=== PATIENT | male | born 1965 | race Caucasian/White ===

== ENCOUNTER 2017-11-30 11:15 | Emergency (ER) | payer OTHER ==
[~2017-11-30] VITALS: Ht 188 cm; Wt 86.2 kg
[~2017-11-30 11:15] MED LIST: HUMALOG100 UNIT/1 SUBQ; LEVEMIR SUBQ
[2017-11-30] MEDS ORDERED: B/P MED (11:23)
[2017-11-30 11:37] LABS: ABSOLUTE BASOPHILS 0.1 thou/uL (0.0-0.2); ABSOLUTE EOSINOPHILS 0.1 thou/uL (0.0-0.7); ABSOLUTE LYMPHOCYTES 1.7 thou/uL (0.8-5.3); ABSOLUTE MONOCYTES 0.4 thou/uL (0.0-1.2); BASOPHILS 0.9 %; EOSINOPHILS 1.7 %; HEMATOCRIT 41.1 % (42.0-52.0); HEMOGLOBIN 14.1 gm/dL (14.0-18.0); LYMPHOCYTES 27.8 %; MCHC 34.2 g/dL (28.0-37.0); MCV 90.6 fL (80.0-100.0); MPV 11.1 fl. (7.2-11.1); NUCLEATED RBCS 0 /100WBC; PLATELET COUNT* 188 thou/uL (150-400); POLYS 63.6 %; RBC 4.54 mil/uL (4.50-6.00); RDW-CV 12.5 % (10.5-14.5); WBC 6.3 thou/uL (4.0-11.0)
[2017-11-30 11:47] LABS: ANION GAP 4 mmol/L (7-16); BUN 23 mg/dL (7-18); CALCIUM 9.2 mg/dL (8.5-10.1); CHLORIDE 100 mmol/L (98-107); CO2 32 mmol/L (21-32); CREATININE 0.9 mg/dL (0.6-1.3); GLUCOSE 365 mg/dL (70-99); POTASSIUM 3.9 mmol/L (3.5-5.1); SODIUM 136 mmol/L (136-145)
[2017-11-30 12:08] LABS: APTT 23.1 Seconds (25.0-31.3); INR 1.1; PROTIME 10.4 Seconds (9.20-11.50)
[2017-11-30 12:16] LABS: ALBUMIN 3.8 g/dL (3.4-5.0); ALKALINE PHOSPHATASE 72 U/L (46-116); LIPASE 107 U/L (73-393); MAGNESIUM 2.3 mg/dL (1.8-2.4); NT-PRO BRAIN NAT PEPTIDE 15 pg/mL (<300); SGOT 7 U/L (15-37); SGPT 14 U/L (30-65); TOTAL BILIRUBIN 0.6 mg/dL (<0.1-1.0); TOTAL PROTEIN 6.7 g/dL (6.4-8.2); TROPONIN-I LEVEL <0.06 ng/mL (<0.06)
[2017-11-30 12:31] VITALS: BP 135/82
[2017-11-30 12:40] LABS: CK-MB MASS 1.1 ng/mL (<0.5-3.6)
--- NOTE | 2017-11-30 16:42 | EKG ---
[place] [address] ELECTROCARDIOGRAM REPORT Name: MAHENDRA AMADOR Room: [facility]#: [id number] Admission: 11/30/17 Attend Phys: Discharge: 11/30/17 Date of : 69 Report #: [id number] THIS REPORT FOR: //name// [facility] ED Test Date: 2017-11-30 Test Time: 11:20:42 Pat Name: MAHENDRA AMADOR Department: Room: Gender: M [employer]: EFRAIN : 1965 Requested By: Nilesh Hickman Order Number: [id number] MD: Pipo Garcia Measurements Intervals Hawi Rate: 93 P: 59 NM: 174 QRS: -19 QRSD: 89 T: 51 QT: 352 QTc: 438 Interpretive Statements Sinus rhythm Borderline left axis deviation Abnormal R-wave progression, early transition Baseline wander in lead(s) V4 Compared to ECG 08/13/2017 10:23:07 No significant changes Electronically Signed On 11-30-2017 16:42:21 CASINO PORTER by Pipo Garcia [email or web address] <ELECTRONICALLY SIGNED> By: Pipo Garcia MD, [facility] 11/30/17 1642 1120 1120 Pipo Garcia MD, [facility] /EPI
== END 2017-11-30 12:32 | disposition home or self-care (01) ==
LOC: M.ERS 11:15
PROVIDERS: Family Medicine
DX: R07.89 Other chest pain (principal); I10 Essential (primary) hypertension; E11.9 Type 2 diabetes mellitus without complications; F32.9 Major depressive disorder, single episode, unspecified; Z98.890 Other specified postprocedural states

== ENCOUNTER 2019-02-16 22:20 | Inpatient (IN) | payer OTHER ==
[~2019-02-16] VITALS: Ht 188 cm; Wt 92.1 kg
--- NOTE | ~2019-02-16 | CON ---
[address] [address] CONSULTATION Name: MAHENDRA AMADOR Room: [address] IN M.R.#: [id number] Admission: 02/16/19 Attend Phys: Giacomo Colby MD Discharge: Date of : 69 Report #: [id number] THIS REPORT FOR: //name// CC: ARLENE physician/PCP Giacomo Colby DATE OF SERVICE: 02/24/2019 post resection, left distal third, fourth and fifth rays with primary closure. Surgical cultures growing Staphylococcus species, preoperative cultures grew methicillin sensitive Staph aureus and Enterococcus faecalis. He is on parenteral Unasyn with good tolerance. He has been afebrile with normal vitals. His pain is low grade and controlled with ibuprofen. He has remained nonweightbearing to the extremity. PHYSICAL EXAMINATION: The incisions are well coapted with low grade inflammation and no dehiscence, drainage or active bleeding. There is no underlying fluctuance or crepitation. Lianne-incisional capillary refill is immediate with no pallor, cyanosis or signs of vascular embarrassment. No popliteal adenopathy, Homans' or Greene sign to either extremity. Moderate pain with palpation to the surgical site. He can flex and extend the left ankle with full strength. IMPRESSION: Osteomyelitis, left foot with diabetes mellitus, status post ray resections. PLAN: Remain nonweightbearing, elevate extremity. The incision was cleansed and redressed with 4 x 4s, ABDs, Kerlix and Anthony wrap. By: [id number] Vo DPM /nt
--- NOTE | ~2019-02-16 | OP ---
[address] [address] OPERATIVE REPORT Name: MAHENDRA AMADOR Room: [address] IN ..#: [id number] Admission: 02/16/19 Attend Phys: Giacomo Colby MD Discharge: Date of : 69 Report #: [id number] THIS REPORT FOR: //name// CC: ARLENE physician/PCP Giacomo Colby DATE OF SERVICE: 02/21/2019 SURGEON: Rowdy Vo DPM PREOPERATIVE DIAGNOSIS: Osteomyelitis, left distal foot with metatarsal involvement. POSTOPERATIVE DIAGNOSIS: Osteomyelitis, left distal foot with metatarsal involvement. PROCEDURE: 1. Ray resection of the left third, fourth and fifth metatarsals with primary closure. 2. Pedicle skin flap, left foot. 3. Incision and drainage, left foot. ANESTHESIA: General LMA. INJECTABLES: 30 mL of a 1:1 mixture of 0.5% Marcaine plain and 1% lidocaine plain. ESTIMATED BLOOD LOSS: Minimal. SUTURES: 2-0 nylon, 3-0 nylon. SPECIMENS: Left distal third, fourth and fifth metatarsals with the third and fifth digits. CULTURES: Bone, left fourth metatarsal, aerobic and anaerobic; soft tissue, left foot, aerobic and anaerobic. HEMOSTASIS: Left ankle pneumatic tourniquet at 275 mmHg. DESCRIPTION OF PROCEDURE: The patient was brought to the OR and placed on the table supine with induction of general LMA anesthesia. A well-padded left ankle pneumatic tourniquet was placed. A local anesthetic block was given to the foot and extremity was prepped and draped aseptically. After exsanguination, the tourniquet was inflated and a #10 blade was used to create a circumferential incision around the distal third, fourth and fifth metatarsophalangeal joints. The skin flap was retracted laterally and the [place] [address] OPERATIVE REPORT Name: MAHENDRA AMADOR Room: [address] IN [facility]#: [id number] Admission: 02/16/19 Attend Phys: Giacomo Colby MD Discharge: Date of : 69 Report #: [id number] metatarsal was removed and a portion was sent for bone culture and the remaining bone for pathology. The adjacent third and fifth toes were disarticulated and sent for specimen as well. The third and fifth metatarsals were transected at the midshaft region where the bone felt hard to the bone saw. They were sent for surgical pathology. The wound was debrided of infected and necrotic tissue and cauterized and flushed with sterile saline with 50,000 units of bacitracin. Then, a skin flap was utilized from plantar lateral and mobilized dorsal medially and sutured with 2-0 and 3-0 nylon in simple interrupted fashion. The skin flap was remodeled with a blade to facilitate closure. The tourniquet was deflated and normal vascular return was present. A small area between the sutures was kept open for drain placement, which consisted of a wick of Aquacel Ag. The entire surgical wound was closed except for the small drain site. The foot was cleansed and dried and dressed with Aquacel Ag, fluffs, ABDs, Kerlix, and Anthony bandage. The patient left the OR with no bleeding or complication. By: [id number] Vo DPM /rodrigo
--- NOTE | ~2019-02-16 | CON ---
[address] [address] CONSULTATION Name: MAHENDRA AMADOR Room: [address] IN M.R.#: [id number] Admission: 02/16/19 Attend Phys: Giacomo Colby MD Discharge: Date of : 69 Report #: [id number] THIS REPORT FOR: //name// CC: ARLENE physician/PCP Giacomo Colby DATE OF SERVICE: 02/22/2019 CHIEF COMPLAINT: Status post resection of the left distal third, fourth and fifth rays with primary closure. He has been afebrile with stable vital signs. He is on parenteral Unasyn with good tolerance. Initial surgical cultures grew Staph aureus and Enterococcus faecalis. Cultures from yesterday's surgery are pending. LABORATORY DATA: WBC 9.8, RBC 3.92, hemoglobin 11.5, hematocrit 34.8, platelets 341, BUN 11, creatinine 1.0. Glucose 217. PHYSICAL EXAMINATION: Left foot incision is well coapted with minimal inflammation and no elias erythema or cellulitis. There is no active bleeding, no underlying fluctuance or crepitation. No signs of acute vascular embarrassment. He has palpable left dorsalis pedis and posterior tibial pulses. IMPRESSION: Status post ray amputations, left foot with osteomyelitis. PLAN: Incision was cleansed and dried. It was redressed with 4 x 4s, ABDs, Kerlix, and Anthony bandage. The patient to remain strictly nonweightbearing to the extremity. By: [id number] Vo DPM /rodrigo
[~2019-02-16 22:20] MED LIST changes: +B/P MED
[2019-02-16 22:22] VITALS: BP 132/91
[2019-02-16 23:07] LABS: HEMATOCRIT 39.3 % (42.0-52.0); HEMOGLOBIN 13.3 gm/dL (14.0-18.0); MCH 30.2 pg (26.0-34.0); MCHC 33.8 g/dL (28.0-37.0); MCV 89.2 fL (80.0-100.0); MPV 10.7 fl. (7.2-11.1); NUCLEATED RBCS 0 /100WBC; PLATELET COUNT* 225 thou/uL (150-400); RBC 4.41 mil/uL (4.50-6.00); RDW-CV 12.6 % (10.5-14.5); WBC 11.5 thou/uL (4.0-11.0)
[2019-02-16 23:20] LABS: APTT 27.7 Seconds (25.0-31.3); INR 1.1; PROTIME 11.6 Seconds (9.20-11.50)
[2019-02-16 23:24] LABS: ANION GAP 14 mmol/L (7-16); BUN 21 mg/dL (7-18); CALCIUM 9.1 mg/dL (8.5-10.1); CHLORIDE 96 mmol/L (98-107); CO2 24 mmol/L (21-32); CREATININE 1.1 mg/dL (0.6-1.3); GLUCOSE 386 mg/dL (70-99); POTASSIUM 4.5 mmol/L (3.5-5.1); SODIUM 134 mmol/L (136-145); TROPONIN-I LEVEL <0.06 ng/mL (<0.06)
[2019-02-16 23:26] LABS: ALBUMIN 2.9 g/dL (3.4-5.0); ALKALINE PHOSPHATASE 88 U/L (46-116); LIPASE 51 U/L (73-393); MAGNESIUM 2.1 mg/dL (1.8-2.4); NT-PRO BRAIN NAT PEPTIDE 136 pg/mL (<300); SGOT 14 U/L (15-37); SGPT 9 U/L (30-65); TOTAL BILIRUBIN 0.9 mg/dL (<0.1-1.0); TOTAL PROTEIN 7.4 g/dL (6.4-8.2)
[2019-02-16 23:38] LABS: ABSOLUTE LYMPHOCYTES 1.4 thou/uL (0.8-5.3); ABSOLUTE MONOCYTES 0.8 thou/uL (0.0-1.2); ABSOLUTE NEUTROPHILS 9.3 thou/uL (1.6-8.1); ANISOCYTOSIS Occasional; PLATELET ESTIMATE ADEQUATE; TOXIC GRANULATION 1+
--- NOTE | 2019-02-17 | NUR ---
PT IV IS POSITIONAL. PT IV RE ADJUSTED, NEW DRESSING PLACED. IV TAKING BOLUS FLUID AT THIS TIME
[2019-02-17 00:07] VITALS: BP 100/78
--- NOTE | 2019-02-17 06:51 | NUR ---
PT ARRIVED FROM ER AT AROUND 0150. ASSESSMENT COMPLETED CHARTED. ABLE TO MAKE NEEDS KNOWN. C/O FOOT PAIN, GAVE PRN TYLENOL AND IBUPROFEN. ON BEDREST AND USES URINAL. PT HASNT HAD MONEY TO PAY FOR INSULIN AND HIS FOOT HAS AN OPEN SORE. PT SLEPT MOST OF THE SHIFT HERE. WILL CONTINUE TO MONITOR.
[2019-02-17 09:00] VITALS: BP 102/70
[2019-02-17 10:06] LABS: CALCIUM 8.2 mg/dL (8.5-10.1); CREATININE 1.1 mg/dL (0.6-1.3); POTASSIUM 3.9 mmol/L (3.5-5.1)
--- NOTE | 2019-02-17 11:03 | NUR ---
Pt is A&O. Pt resides and works at the [employer]. Active and independent, Pt can drive, but does not own a car. No DME. No hx of HH or SNF. Pt stated that his family use to have [place], but they "lost" it in 2018, Pt is unsure as to why. Pt is a diabetic, should be on insulin, but currently is not. CM discussed insulin at [facility] and provided Pt with the [facility] and [employer] info. Pt stated that he could afford the R and N insulin at [facility], if that is what is prescribed. Pt will call and schedule an appointment. Following.
[2019-02-17 12:00] VITALS: BP 103/77
--- NOTE | 2019-02-17 12:40 | EKG ---
[place] [address] ELECTROCARDIOGRAM REPORT Name: MAHENDRA AMADOR Room: [address] ADM IN .R.#: [id number] Admission: 02/16/19 Attend Phys: Giacomo Colby MD Discharge: Date of : 69 Report #: [id number] THIS REPORT FOR: //name// [facility] ED Test Date: 2019-02-17 Test Time: 00:00:37 Pat Name: MAHENDRA AMADOR Department: Room: [facility] Gender: M [employer]: : 1965 Requested By: Arnulfo Jones Order Number: [id number] MD: Cyrus Ramirez Measurements Intervals Randolph Rate: 105 P: 65 MN: 167 QRS: -23 QRSD: 77 T: 64 QT: 337 QTc: 446 Interpretive Statements Sinus tachycardia Probable left atrial enlargement Borderline left axis deviation Borderline low voltage, extremity leads ST elev, probable normal early repol pattern Compared to ECG 11/30/2017 11:20:42 Sinus rhythm no longer present Electronically Signed On 02-17-2019 12:40:20 CDT by Cyrus Ramirez [email or web address] <ELECTRONICALLY SIGNED> By: Cyrus Ramirez MD, FAC 02/17/19 1240 0000 0000 Cyrus Ramirez MD, [facility] /EPI
[2019-02-17 15:07] VITALS: BP 103/77
--- NOTE | 2019-02-17 15:34 | NUR ---
WOUND CARE NOTE: CONSULT RECEIVED FOR LT FOOT WOUND/CELLULITIS. PATIENT PRESENTS WITH A DIABETIC FOOT ULCER TO THE PLANTAR SURFACE OF HIS LEFT FOOT AT THE 4TH METATARSAL HEAD. PATIENT UNSURE OF HOW LONG HE HAS HAD THE WOUND. WOUND MEASURES 0.5X0.9X1.4. PROBES TO JOINT. FOUL ODOR NOTED. WOUND BED IS MOIST WITH PURULENT DRAINAGE. SACHI-WOUND IS EDEMATOUS, INFLAMMED. DRIED DRAINAGE NOTED TO SACHI-WOUND. ENTIRE LEFT FOREFOOT WITH 2-3+ EDEMA MANAGER ENDOSCOPY IN TO ASSESS WOUND DURING ASSESSMENT, PLANS FOR SURGERY THIS EVENING. CULTURES OBTAINED. PHOTOGRAPH OBTAINED. CLEANSED WOUND WITH WOUND CLEANSER, WRAPPED WITH KERLIX. RECOMMEND TIGHT BLOOD GLUCOSE CONTROL ENCOURAGE GOOD NUTRTION/HYDRATION ONCE ABLE
[2019-02-17 16:00] VITALS: BP 108/72
--- NOTE | 2019-02-17 19:46 | NUR ---
ASSUMED PT CARE AT 0700 PT IS ALERT AND ORIENTED X 4 PT DENIES PAIN PT LEFT FOOT RED HAS EDEMA AND ULCER ON BOTTOM LEFT FOOT OPEN AND BLEEDING CLEANED AND COVERED WITH MEPILEX PYSICIAN CONSULTED PODIATRY WHO ORDERED PT NPO WHICH THIS NURSE PLACED PT NPO AROUND 1200 FOR SURGERY, PT WENT TO PACU SINCE PT WAS NOT NPO FOR 8 HOURS SURGERY CAN NOT BE DONE TODAY PT IS NPO AT MIDNIGHT FOR PROCEDURE TOMORROW, PT IS UP WITH HEEL TOUCH WEIGHT BARRIN AND WALKER PT IS SBA PT WILL CALL OUT APPROPRIATELY, PT IS SR ON THE MONITOR, WILL CONTINUE TO MONITOR
[2019-02-17 20:00] VITALS: BP 106/64
[2019-02-18] VITALS: BP 97/69
[2019-02-18 04:00] VITALS: BP 99/68
[2019-02-18 05:00] LABS: HEMATOCRIT 32.2 % (42.0-52.0); MCH 29.7 pg (26.0-34.0); MCHC 33.1 g/dL (28.0-37.0); MCV 89.8 fL (80.0-100.0); MPV 10.9 fl. (7.2-11.1); RBC 3.59 mil/uL (4.50-6.00); RDW-CV 12.8 % (10.5-14.5)
[2019-02-18 05:08] LABS: CALCIUM 7.9 mg/dL (8.5-10.1); POTASSIUM 3.9 mmol/L (3.5-5.1)
[2019-02-18 05:39] LABS: HEMOGLOBIN 10.7 gm/dL (14.0-18.0)
--- NOTE | 2019-02-18 05:42 | NUR ---
ASSUMED CARE OF PT AFTER REPORT AT 1930. PT A&OX4. VSS. PHYSICAL ASSESSMENT COMPLETED AND CHARTED. PT ON RA WITH 92% O2 SAT. PT TRACING SR ON TELE. PT COMPLAINED OF LEFT FOOT PAIN- PAIN MEDS GIVEN PER JAN. INSTRUCTED PT ON NPO POST MIDNIGHT FOR SURGERY TODAY. COMMUNICATES UNDERSTANDING. MRSA NASAL SWAB SENT LAB. CALL LIGHT WITHIN REACH.
[2019-02-18 06:05] LABS: GLYCOHEMOGLOBIN (HGB A1C) 14.6 % (4.8-5.6)
[2019-02-18 08:00] VITALS: BP 93/66
--- NOTE | 2019-02-18 09:45 | NUR ---
ASSUMED CARE OF PATIENT THIS AM AT 0730. PATIENT IS ALERT AND ORIENTED X 4. HE DENIES NEED FOR PAIN MEDICATION THIS AM. TELE SHOWS NSR. PATIENT TAKEN TO PACU FOR ORDERED PROCEDURE PER W/C
[2019-02-18 12:03] VITALS: BP 104/77
[2019-02-18 16:58] VITALS: BP 115/77
[2019-02-18 20:00] VITALS: BP 101/70
[2019-02-19] VITALS: BP 106/75
[2019-02-19 04:00] VITALS: BP 108/74
[2019-02-19 04:39] LABS: HEMATOCRIT 30.9 % (42.0-52.0); HEMOGLOBIN 10.4 gm/dL (14.0-18.0); MCHC 33.8 g/dL (28.0-37.0); MCV 88.7 fL (80.0-100.0); MPV 11.1 fl. (7.2-11.1); RBC 3.49 mil/uL (4.50-6.00); RDW-CV 12.6 % (10.5-14.5); WBC 6.4 thou/uL (4.0-11.0)
[2019-02-19 04:47] LABS: CALCIUM 7.9 mg/dL (8.5-10.1); POTASSIUM 4.1 mmol/L (3.5-5.1)
[2019-02-19 05:34] LABS: URINE BILIRUBIN NEGATIVE (Negative); URINE BLOOD NEGATIVE (Negative); URINE CLARITY CLEAR; URINE COLOR YELLOW; URINE GLUCOSE-RANDOM 1+ (Negative); URINE KETONES NEGATIVE (Negative); URINE LEUKOCYTES-REFLEX NEGATIVE (Negative); URINE NITRITE-REFLEX NEGATIVE (Negative); URINE PROTEIN NEGATIVE (Negative); URINE SPECIFIC GRAVITY 1.015 (1.005-1.030)
--- NOTE | 2019-02-19 05:37 | NUR ---
ASSUMED CARE OF PT AFTER REPORT AT 1930. PT A&OX4. VSS. PHSYICAL ASSESSMENT COMPLETED AND CHARTED. PT ON RA WITH 93% O2 SAT. PT TRACING SR ON TELE. PT UPADLIB TO RESTROOM. PT COMPLAINED OF LEFT FOOT PAIN- PAIN MEDS GIVEN PER JAN. URINE SPECIMEN SENT TO LAB. CALL LIGHT WITHIN REACH.
[2019-02-19 08:00] VITALS: BP 108/80
--- NOTE | 2019-02-19 11:57 | NUR ---
ASSUMED CARE AGAIN THIS AM AT 073. PATIENT REMAINS ALERT AND ORIENTED. PATIENT STATED PAIN HAS BEEN CONTROLLED WITH PO IBUPROFEN. HE CONTINUES ON SCHEDULED IV ANTIBIOTICS. FSBS MONITORED. TELE SHOWS NSR. PATIENT IS UP TO THE BATHROOM INDEPENDENTLY. DR IN TO ROUND AND TRANSFER ORDERS WRITTEN. WILL DISCONTINUE TELE TODAY.
[2019-02-19 16:04] VITALS: BP 121/82
[2019-02-19 20:00] VITALS: BP 150/92
[2019-02-20 04:00] VITALS: BP 114/81
--- NOTE | 2019-02-20 05:46 | NUR ---
ASSUMED CARE OF PT AFTER REPORT AT 1930. PT A&OX4. VSS. PHYSICAL ASSESSMENT COMPLETED AND CHARTED. PT ON RA WITH 94% O2 SAT. PT ON MEDSURG STATUS. PT UPADLIB TO RESTROOM. PT COMPLAINED OF LEFT FOOT PAIN-PAIN MEDS GIVEN PER JAN. PT RESTED WELL ON BED. HOURLY ROUNDING OBSERVED. CALL LIGHT WITHIN REACH.
[2019-02-20 06:05] LABS: CALCIUM 8.4 mg/dL (8.5-10.1); CREATININE 1.1 mg/dL (0.6-1.3); MAGNESIUM 2.1 mg/dL (1.8-2.4); POTASSIUM 4.8 mmol/L (3.5-5.1)
[2019-02-20 08:00] VITALS: BP 114/79
--- NOTE | 2019-02-20 11:28 | NUR ---
ASSUMED PT CARE AT 0700 PT IS ALERT AND ORIENTED X 4 PT C/O PAIN GAVE PT PAIN MEDS WHICH PT STATES HELPS, PT IS MED SURG STATUS, PT IS UP AD ALDA PT IS NOT A FALL RISK, WILL CONTINUE TO MONITOR
[2019-02-20 12:15] VITALS: BP 126/76
[2019-02-20 14:16] VITALS: BP 118/80
[2019-02-20 20:00] VITALS: BP 148/90
--- NOTE | 2019-02-21 05:22 | NUR ---
PT TRANSFERRED FROM TELEMETRY VIA BED. PT AAOX4 RESP REG AND UNALBORED SKIN W/D NO ACUTE DISTRESS NOTED. PT IS AWARE THAT HE IS NPO AFTER MIDNIGHT FOR SURGERY IN AM. PT ORIENTED TO ROOM, ALL SYSTEMA ND BED CONTROLS. PT VERBALOZED GOOD UNDERSTANDING. VSS AND NO ACUTE CAHNGES DURIGN SHIFT. DRESSING TO RIGHT FOOT CLEAN DRY AND INTACT. WILL CONTINUE TO MONITOR
--- NOTE | 2019-02-21 07:50 | CON ---
[facility] [address] [place] [address] CONSULTATION Name: MAHENDRA AMADOR Room: [address] IN M.R.#: [id number] Admission: 02/16/19 Attend Phys: Giacomo Colby MD Discharge: Date of : 69 Report #: [id number] THIS REPORT FOR: //name// CC: ARLENE physician/PCP Giacomo Colby DATE OF SERVICE: 02/20/2019 INFECTIOUS DISEASE CONSULTATION ATTENDING PHYSICIAN: Isac Stoner M.D. REASON FOR EVALUATION: Deep-seated infection involving the left foot. He is post fourth digit amputation as well as the distal aspect of the fourth metatarsal, including the joint, with what appears to be polymicrobial growth including staph and strep. HISTORY OF PRESENT ILLNESS: Chart reviewed, the patient examined. This is a 53-year-old with known history of diabetes mellitus, who apparently has not been well controlled in part due to inability to acquire insulin and loss of insurance, noted hemoglobin A1c of greater than 14. He has had ongoing issues with peripheral neuropathy and also feeling in his foot. He believes he cut his foot, perhaps stepping on something. Over the course of the last 1-2 weeks, he has felt generalized discomfort and malaise. I think, he had the flu. However, over the course of the last week, he noted increasing swelling associated with his left foot and he was ultimately confirmed to have increasing inflammation. It is not clear that he has had significant fevers. He has had anorexia, with some decreased oral intake. He denies any significant pulmonary complaints. He has had mild nausea. He was empirically started on therapy with Zosyn and vancomycin. Initial culture superficially has combination therapy for staph and strep. Operative cultures from 02/18/2019 are pending, although Gram stain does confirm gram-positive cocci, including from the bone. ALLERGIES: None known. MEDICATIONS: Include metformin, hydrocodone, insulin NPH, vancomycin, ibuprofen, p.r.n. ondansetron, promethazine, aspirin, insulin lispro and Zosyn. PAST MEDICAL HISTORY: Diabetes mellitus type 2, insulin requiring; hypertension; previous pancreatitis; depression and cholecystectomy. SOCIAL HISTORY: Nonsmoker. No ethanol. No illicit drug use. FAMILY HISTORY: Noncontributory. REVIEW OF SYSTEMS: Otherwise unremarkable, except for the noted 10[place] [address] CONSULTATION Name: MAHENDRA AMADOR Room: [address] IN [facility]#: [id number] Admission: 02/16/19 Attend Phys: Giacomo Colby MD Discharge: Date of : 69 Report #: [id number] of systems above in the history of present illness. PHYSICAL EXAMINATION: GENERAL: He is alert, cooperative, in mild distress, appears somewhat undernourished. VITAL SIGNS: His temperature is 97.9, pulse 77, respirations 16 and blood pressure 114/79. HEENT: Normocephalic. Extraocular muscle intact. He does have generally poor dentition. NECK: Supple. LUNGS: Clear to auscultation. HEART: Regular rate. I do not appreciate a murmur. ABDOMEN: Soft, nontender and nondistended. EXTREMITIES: Left foot has a surgical dressing in place. GENITOURINARY: Deferred. RECTAL: Deferred. LABORATORY DATA: Electrolytes: Sodium 141, potassium 4.8, chloride 106, bicarb is 27, BUN and creatinine 14 and 1.1, anion gap of 8 and estimated GFR of 71. Lactic acid initially was 1.4, repeat now is 0.6. Cultures as described above. Blood cultures sterile thus far. Urinalysis unremarkable, with the exception of 1+ glucose. CBC: White count 6.4, H and H 10.4 and 30.9 and platelets of 205,000. Hemoglobin A1c of 14.6. ABIs were otherwise unremarkable. Sed rate of 70. CRP of 215.2. ASSESSMENT AND PLAN: Deep infection involving the left foot in a patient with uncontrolled diabetes mellitus. We will continue empiric therapy. We would be concerned about synergistic infection and may need additional procedures. We will await culture results of the pathology. At this point, he is not overtly toxic. He does obviously need diabetes treatment at there is no expectation this would not happen again and as it currently is the clinical picture. <ELECTRONICALLY SIGNED> By: Cory Gallagher MD 02/21/19 0750 1217 0146Cory Gallagher MD /nt
[2019-02-21 08:57] VITALS: BP 134/86
[2019-02-21 11:58] VITALS: BP 103/77
[2019-02-21 13:56] VITALS: BP 129/79
[2019-02-21 16:58] VITALS: BP 141/91
--- NOTE | 2019-02-21 17:50 | NUR ---
ASSUMED CARE OF PT AROUND 0730 THIS AM. REFER TO ASSESSMENT. PT HAD SURGERY TO REMOVE 3RD AND 5TH TOE TO LEFT FOOT TODAY. PT TOLERATED WELL. POST OP, PT APPLIED WEIGHT TO LLE AND NOTED A LARGE AMOUNT OF RED BLOOD DRAINAGE TO DRESSING. DRESSING WAS REINFORCED AND DR. JOYA RETURNED TO BEDSIDE. EDUCATED PT NOT TO PUT ANY WEIGHT TO LLE. NO OTHER CONCERNS AT THIS TIME. CLWR. WCTM.
[2019-02-21 20:00] VITALS: BP 128/83
[2019-02-22 00:02] VITALS: BP 134/84
[2019-02-22 04:09] VITALS: BP 107/77
--- NOTE | 2019-02-22 05:18 | NUR ---
ASSUMED CARE OF PT AT 1900 PT ALERT AND ORIENTED X4 VS AND ASSESSMENT STABLE. PT HAD PAIN MEDS ONCE OVERNIGHT THEN SLEPT THROUGH THE NIGHT LEFT FFOT ELEVATED NO BLEEDING NOTED ON DRESSING. WILL CONTINUE PLAN OF CARE.
[2019-02-22 05:33] LABS: HEMATOCRIT 34.8 % (42.0-52.0); HEMOGLOBIN 11.5 gm/dL (14.0-18.0); MCH 29.4 pg (26.0-34.0); MCHC 33.2 g/dL (28.0-37.0); MCV 88.7 fL (80.0-100.0); MPV 10.1 fl. (7.2-11.1); RBC 3.92 mil/uL (4.50-6.00); RDW-CV 12.7 % (10.5-14.5); WBC 9.8 thou/uL (4.0-11.0)
[2019-02-22 05:55] LABS: CALCIUM 8.4 mg/dL (8.5-10.1); MAGNESIUM 1.9 mg/dL (1.8-2.4)
[2019-02-22 08:20] VITALS: BP 105/70
[2019-02-22 11:48] VITALS: BP 112/79
--- NOTE | 2019-02-22 13:09 | CON ---
[address] [address] CONSULTATION Name: MAHENDRA AMADOR Room: [address] IN .R.#: [id number] Admission: 02/16/19 Attend Phys: Giacomo Colby MD Discharge: Date of : 69 Report #: [id number] THIS REPORT FOR: //name// CC: ARLENE physician/PCP Giacomo Colby DATE OF SERVICE: 02/19/2019 CHIEF COMPLAINT: Status post incision and drainage of left foot with amputation of the fourth digit. He is on parenteral vancomycin and Zosyn with good tolerance. He has been afebrile with good appetite, minimal pain control with Tylenol. Preoperative wound cultures growing gram-positive cocci and rods. He is scheduled for a left foot MRI tomorrow. LABORATORY DATA: WBC 6.4, RBC 3.49, hemoglobin 10.4, hematocrit 30.9, platelets 205. BUN 17, creatinine 1.0, glucose 264. PHYSICAL EXAMINATION: Substantial decrease in inflammation from preop. The dorsal incision is well coapted, the plantar wound has no active bleeding. There is no fluctuance or crepitation. The foot is warm with palpable dorsalis pedis and posterior tibial pulses. There is no pallor, cyanosis or signs of acute vascular embarrassment. No popliteal adenopathy noted. IMPRESSION: Osteomyelitis of left fourth toe with deep tissue infection, type 2 diabetes mellitus. PLAN: The incision and wound were cleansed and repacked with Aquacel Ag and covered with 4 x 4s, Kerlix and Anthony. The patient is to remain nonweightbearing to the foot. The patient may remain partial weightbearing to the foot in a surgical shoe with crutch or walker assistance. PLAN: MRI with contrast tomorrow to evaluate for residual osteomyelitis. <ELECTRONICALLY SIGNED> By: Rowdy Vo DPM 02/22/19 1309 1007 0138Rowdy Vo DPM /nt
--- NOTE | 2019-02-22 13:09 | OP ---
[address] [address] OPERATIVE REPORT Name: MAHENDRA AMADOR Room: [address] IN .R.#: [id number] Admission: 02/16/19 Attend Phys: Giacomo Colby MD Discharge: Date of : 69 Report #: [id number] THIS REPORT FOR: //name// CC: ARLENE physician/PCP Giacomo Colby DATE OF SERVICE: 02/16/2019 SURGEON: Rowdy Vo DPM. PREOPERATIVE DIAGNOSIS: Abscess, left foot with deep tissue infection. POSTOPERATIVE DIAGNOSIS: Abscess, left foot with deep tissue infection. PROCEDURES: 1. Incision and drainage, left fourth intermetatarsal space. 2. Amputation, left fourth toe at MTP joints. 3. Surgical wound debridement, left foot. ANESTHESIA: MAC. INJECTABLES: 30 mL of 0.5% Marcaine plain. SUTURES: 3-0 nylon. SPECIMENS: Left fourth toe. CULTURES: 1. Bone, proximal phalanx of the left fourth digit, aerobic and anaerobic. 2. Soft tissue, left foot, aerobic and anaerobic. ESTIMATED BLOOD LOSS: Minimal. HEMOSTASIS: Left ankle pneumatic tourniquet at 275 mmHg. COMPLICATIONS: None. DESCRIPTION OF PROCEDURE: The patient was brought to the OR and placed on the table supine with induction of MAC anesthesia. A well-padded left ankle pneumatic tourniquet was placed and a local anesthetic block was given to the foot and the extremity was prepped and draped aseptically. After exsanguination and inflation of the tourniquet, a #10 blade was used to create an incision to the plantar aspect of the left fourth intermetatarsal space. The incision was carried out circumferentially around the plantar ulceration that was underneath the fourth metatarsophalangeal joint. I circumscribed the ulcer and removed it in toto and sent it for aerobic and anaerobic soft tissue culture. Roughly 2 [place] [address] OPERATIVE REPORT Name: MAHENDRA AMADOR Room: [address]#: [id number] Admission: 02/16/19 Attend Phys: Giacomo Colby MD Discharge: Date of : 69 Report #: [id number] of purulence was expressed and I extended the incision through the fourth interdigital space to the dorsal aspect of the foot. I dissected along the distal fourth metatarsal and the metatarsal was surrounded by infected liquified-type soft tissue with roughly 2 mL more of purulence. The articular surface of the metatarsal had no visible lysis, discoloration or obvious signs of osteomyelitis. I performed extensive soft tissue debridement of this intraoperative wound with Metzenbaum scissors and scalpel to remove devitalized and infected tissue to include tendons and subcutaneous tissue. Electrocautery was used for hemostasis. The skin margins were remodeled and cauterized. The wound was irrigated with 1 liter of sterile saline with 50,000 units of bacitracin. I used 3-0 nylon for some retention sutures to the dorsal aspect of the wound, leaving the plantar aspect open, which I packed with saline-soaked sponge. The remaining foot was covered with fluffs, ABDs and Kerlix gauze. The tourniquet was deflated prior to bandage application, and normal vascular status returned to the renée-incision. The patient left the OR alert and oriented, with no pain or complications noted. <ELECTRONICALLY SIGNED> By: Rowdy Vo DPM 02/22/19 1309 1049 1238Dathierry Vo DPM /nt
--- NOTE | 2019-02-22 13:09 | CON ---
[address] [address] CONSULTATION Name: MAHENDRA AMADOR Room: [address] IN M.R.#: [id number] Admission: 02/16/19 Attend Phys: Giacomo Colby MD Discharge: Date of : 69 Report #: [id number] THIS REPORT FOR: //name// CC: ARLENE physician/PCP Giacomo Colby DATE OF SERVICE: 02/20/2019 CHIEF COMPLAINT: Status post incision and drainage, left foot with fourth toe amputation. MRI showed increased uptake to the left fourth metatarsal as well as the adjacent distal third and fifth metatarsals consistent with osteomyelitis. Preoperative wound cultures growing Enterococcus faecalis and Staph aureus. He is on parenteral vancomycin and Zosyn. He has been afebrile, relates mild pain to foot, well controlled with medication. He has remained nonweightbearing to the extremity. ABIs 1.45 on right, 0.91 on the left. LABORATORY DATA: BUN 14, creatinine 1.1, glucose 194. PHYSICAL EXAMINATION: Temperature 97.8, pulse 91, respirations 19, blood pressure 118/80, low grade inflammation to left distal foot at postoperative wound. The area is exquisitely tender to the touch. There is fibronecrotic tissue along the lateral third metatarsal septum, spur along the third and fifth metatarsal septums. The third and fourth metatarsals are not visible, but are covered with a thin layer of fibronecrotic tissue. There is no pallor or cyanosis. The foot is warm with palpable dorsalis pedis and posterior tibial pulses. The inflammation has significantly decreased since yesterday. IMPRESSION: Osteomyelitis, left distal third, fourth and fifth metatarsals with deep tissue infection. PLAN: I recommend transmetatarsal amputation of the left third, fourth and fifth metatarsals. I will keep the patient n.p.o. and schedule him for surgery tomorrow. <ELECTRONICALLY SIGNED> By: Rowdy Vo DPM 02/22/19 1309 2115 1258Dathierry Vo DPM /rodrigo
[2019-02-22 15:19] VITALS: BP 130/90
--- NOTE | 2019-02-22 15:51 | NUR ---
ASSUMED CARE OF PT AROUND 0730 THIS AM. REFER TO ASSESSMENT. PT HAS NO C/O PAIN THIS SHIFT. DRESSING TO LLE C/D/I. NO OTHER CONCERNS AT THIS TIME. CLWR. WCTM.
--- NOTE | 2019-02-22 16:53 | NUR ---
SPOKE WITH PT.ABOUT DISCHARGE PLANNING. WOULD LIKE CM TO LOOK INTO OPTION OF ZYVOX FOR PT. PT.SAID HE AND FAMILY LIVE AT [facility]. 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 IT IS NOT A SET SCHEDULE. NUMBER OF FAMILY MEMBERS IS 4. HE SAID HE WILL NEED TO CHECK ON HIS AND WIFES INCOME SO CM CAN CHECK ON [facility] ASSISTANCE [facility]GRAM HE WILL TRY TO HAVE INFORMATION IN AM. HE SAID HE HAD MEDICAID AT ONE TIME BUT LOST IT. IS UNSURE WHY. WILL SEE IF [employer] CAN INVESTIGATE THIS FOR HIM.
--- NOTE | 2019-02-22 17:37 | NUR ---
ASSUMMED CARE OF PT. I AGREE WITH ASSESSMENT. PT RESTING IN ROOM. ALERT AND ORIENTED. FALL RISK PRECAUTIONS IN PLACE. HOURLY ROUNDING COMPLETED. WILL CONTINUE TO MONITOR.
[2019-02-22 20:00] VITALS: BP 133/85
--- NOTE | 2019-02-23 06:13 | NUR ---
PT. PROGRESSING TOWARDS GOALS. UP TO BEDSIDE COMMODE INDEPENDENTLY. FOLLOWING NON-WEIGHT BEARING STATUS. C/O PAIN ONCE THIS SHIFT, HYDROCODONE GIVEN PER PRN ORDER. HOURLY ROUNDING COMPLETED. CALL LIGHT IN REACH, WILL CONTINUE TO MONITOR.
[2019-02-23 07:50] VITALS: BP 117/79
--- NOTE | 2019-02-23 15:24 | NUR ---
SPOKE WITH PT. HE HAD HIS INCOME INFORMATION AND GAVE IT TO CM. CM CALLED [facility] [phone]/CARLOS. WITH HOUSHOLD OF 4 (2 ADULTS AND 2 CHILDREN) AND HIS INCOME, HE DOES QUALIFY FOR THE ASSISTANCE PROGRAM (UP TO 30 DAY SUPPLY INITIALLY IF NEEDED). HE WILL FAX APPROVAL LETTER AND APPLICATION TO CM. THEY WILL OVERNIGHT SHIP THE ZYVOX TO PT.,AFTER THEY RECEIVE PRESCRIPTION FOR IT. CM WILL OBTAIN PRESCRIPTION FROM AND FAX IT TOMORROW TO [facility] SQRIPCP-[phone]. PT.INFORMED.
[2019-02-23 15:40] VITALS: BP 105/73
--- NOTE | 2019-02-23 17:07 | PATH ---
[address] [address] PATHOLOGY RPT PROCEDURE Name: ROBY SUH Room: [address] IN M.R.#: [id number] Admission: 02/16/19 Date of : 69 Discharge: Report #: [id number] Path Case #: [id number] L[facility] Accession Number: [id number] . 01 Material submitted: . LEFT FOURTH TOE IN FORMALIN . 01 Clinical history: . Abscess left foot, septic arthritis of MTT joint . 02 Diagnosis: Left fourth toe: - Benign toe with nonspecific ulceration, prominent acute inflammation of soft tissues and osteomyelitis of phalangeal bone, with osteomyelitis extending to black inked resection margin. (VAMSI:michelet; 02/23/2019) QMS/02/23/2019 . 02 Electronically signed: . Contreras Quiroz MD, Pathologist NPI- [id number] . 01 Gross description: . The specimen is received in formalin, labeled "Roby Suh, left fourth toe", is a distal portion of digit measuring 5.0 cm from the proximal skin resection margin to distal tip and up to 2.0 cm in width. There is a avendano-brown, necrotic tissue measuring 1.5 x 1.1 cm, that involves the lateral skin and bone margins. The specimen is longitudinally sectioned to show this lesion involving the lateral soft tissue with possible extension to the bone. The proximal skin margin is inked blue and the bone margin black. The distal tip is edematous with a montgomery-white crusted nail. Obstetric Anaesthetist tissue is submitted as follows: A1-A2. Proximal bone and skin margin to distal tip, longitudinal section after decalcification, green ink at intersection (SWS; 02/20/2019) SHS/SHS . 02 Pathologist provided ICD-10: L97.529, L08.9, M86.172 . 02 CPT . 577017, 191207 Specimen Comment: A courtesy copy of this report has been sent to Specimen Comment: [phone]. Specimen Comment: Report sent to DR LEIGH Performed at: [address] [place] [address] PATHOLOGY RPT PROCEDURE Name: ROBY SUH Room: [address] IN M.R.#: [id number] Admission: 02/16/19 Date of : 69 Discharge: Report #: [id number] Path Case #: [id number] [address] [facility] [address], [place], [place] [id number] MD Constantin Walker MD Phone: [phone] Performed at: [address] [facility] [address] [place] [id number] MD Contreras Quiroz MD Phone: [phone]
--- NOTE | 2019-02-23 18:17 | NUR ---
ASSUMED CARE OF PATIENT AT APPROX 0730. ALERT AND ORIENTED X4. ASSESSMENT COMPLETED AND CHARTED. NO COMPLAINTS OF PAIN, NAUSEA OR SOA. ANTIBIOTICS INFUSED ORDERED. PATIENT EDUCATED ON SAFETY AND FALL PREVENTION PROTOCALS, INSTRUCTED TO HAVE STAFF PRESENT WHEN HE NEEDS TO GET UP TO USE THE BATHROOM AND TRANSFER FROM BED TO CHAIR/CHAIR TO BED. PATIENT DOES CALL PERIODICALLY BUT TRANSFERS HIMSELF WITHOUT STAFF IN THE ROOM. REPEATED EDUCATION GIVEM BY STAFF. FALL PRECAUTIONS IN PLACE. CALL LIGHT WITHIN REACH. HOURLY ROUNDS COMPLETED. NURSING WILL CONTINUE TO MONITOR.
[2019-02-23 19:37] VITALS: BP 126/84
--- NOTE | 2019-02-24 05:01 | NUR ---
REPORT RECEIVED FROM OFF-GOING SHIFT, CARE ASSUMED. AA0 X4. NO ACUTE DISTRESS NOTED. DENIES PAIN. PT SAT IN CHAIR MAJORITY OF SHIFT, SLEPT VERY LITTLE. VSS. DRESSING ON LEFT FOOT IS CDI. WILL CONTINUE TO MONITOR.
[2019-02-24 07:50] VITALS: BP 139/89
--- NOTE | 2019-02-24 10:08 | PATH ---
[address] [address] PATHOLOGY RPT PROCEDURE Name: ROBY SUH Room: [facility] IN M.R.#: [id number] Admission: 02/16/19 Date of : 69 Discharge: Report #: [id number] Path Case #: [id number] LCA Accession Number: [id number] . 01 Material submitted: . LEFT 3RD TOE, 5TH TOE, 3RD METATARSAL, 4TH METATARSAL, AND 5TH METATARSAL . 01 Clinical history: . Osteomyelitis left fourth metatarsal . 02 Diagnosis: Left third toe, fifth toe, third metatarsal, fourth metatarsal and fifth metatarsal: - Third toe with acute inflammation and necrosis of soft tissue and osteomyelitis of phalangeal bone. - Benign fifth toe without osteomyelitis identified. - Third, fourth and fifth metatarsals with acute inflammation of attached soft tissues and with osteomyelitis, each with transection margins free of osteomyelitis. - Separate segment of bone with osteomyelitis. - Severe medial calcification of blood vessels. - See comment. (VAMSI:rhonda; 02/23/2019) WAYNE/02/23/2019 . 02 Comment: In each of the metatarsals, osteomyelitis is identified predominantly near the articular ends (heads). The separate small segment of bone (A13) shows osteomyelitis predominantly on the surface and appears to involve both ends of the segment. (VAMSI:rhonda; 02/23/2019) . 02 Electronically signed: . Contreras Quiroz MD, Pathologist NPI- [id number] . 01 Gross description: . The specimen is received in formalin, labeled "Roby Suh, left third toe marked with suture, fifth toe no suture, third metatarsal long suture, fourth metatarsal no suture, fifth metatarsal short suture". Received is an amputated digit, with a suture present (third toe) measuring 6.3 x 2.0 x 1.8 cm in greatest dimensions. The nail is present displaying a pale avendano and grossly unremarkable appearance. The epidermal surface is pale avendano and slightly wrinkled in appearance. The bone margin is smooth and concave appearance, consistent with disarticulation. The bone and soft tissue margins are inked black. The second amputated digit, with no suture present (fifth toe) measures 4.6 x 2.7 x 2.6 cm in greatest dimensions. The nail is present displaying [place] [address] PATHOLOGY RPT PROCEDURE Name: ROBY SUH Room: [address] IN [facility]#: [id number] Admission: 02/16/19 Date of : 69 Discharge: Report #: [id number] Path Case #: [id number] appearance. The epidermal surface is pale avendano and slightly flaky in appearance. The bone margin is smooth and concave in appearance, consistent with disarticulation. The bone and soft tissue margins are inked blue. The metatarsal with a long suture present (third metatarsal) measures 3.4 x 2.1 x 1.3 cm in greatest mentions. One margin is smooth and convex in appearance and the opposite margin is blunt in appearance, consistent with transection. The transected margin is inked yellow. The metatarsal without a suture present (fourth metatarsal) measures 5.8 x 2.3 x 1.3 cm in greatest dimensions. One margin is smooth to jagged in appearance and the opposite margin is blunt in appearance, consistent with transection. The transected margin is inked red. The metatarsal with a short suture present (fifth metatarsal) measures 3.4 x 2.1 x 1.3 cm in greatest dimensions. One margin is smooth and convex in appearance and the opposite margin is blunt in appearance, consistent with transection. The transected margin is inked orange. . Also received within the specimen container is an additional segment of bone with two transected margins measuring 1.2 cm in length by up to 1.3 cm in diameter. Within the marrow space of one transected margin, blue dye is present. The opposite transected margin is inked green. The specimen is submitted representatively as follows: . A1-A3 full-thickness longitudinal cross-section of toe three (black inked margin), from proximal to distal aspects, following decalcification A4-A5 full-thickness longitudinal cross-section of toe five (blue inked margin), from proximal to distal aspects, following decalcification A6-A7 full-thickness longitudinal cross-section of third metatarsal (yellow inked margin), from proximal to distal aspects, following decalcification A8-A10 full-thickness longitudinal cross-section of fourth metatarsal (red inked margin), from proximal to distal aspects, following decalcification A11-A12 full-thickness longitudinal cross-section of fifth metatarsal (orange inked margin), from proximal to distal aspects, following decalcification A13 full-thickness cross-section of separately submitted segment of bone (green ink), following decalcification. . A gross photograph is taken. (CAA; 02/22/2019) QAC/QAC . 02 Pathologist provided ICD-10: M86.8X7, M79.9 . 02 CPT . 777406, 970842 Specimen Comment: A courtesy copy of this report has been sent to Specimen Comment: [phone]. [address] [address] PATHOLOGY RPT PROCEDURE Name: ROBY SUH Room: [address] IN ..#: [id number] Admission: 02/16/19 Date of : 69 Discharge: Report #: [id number] Path Case #: [id number] Specimen Comment: Report sent to DR LEIGH Performed at: 01 [facility] [address] [facility] [address], [place], [place] [id number] MD Constantin Walker MD Phone: [phone] Performed at: 02 [facility] [address] [place], [place] [id number] MD Contreras Quiroz MD Phone: [phone]
--- NOTE | 2019-02-24 13:30 | NUR ---
FAXED PRESCRIPTION FOR ZYVOX FROM TO [facility] [phone]. CONFIRMED WITH [facility] THAT THEY HAD RECEIVED IT AND WAS READY TO BE OVERNIGHT SHIPPED. SPOKE WITH PT.AND EXPLAINED. GAVE HIM APPLICATION TO FILL OUT AND FAX BACK TO [facility] IN CASE NEEDING ANOTHER REFILL. EXPLAINED [facility] WOULD NOT ASSIST HIM AGAIN UNLESS HE FILLED OUT AND RETURNED APPLICATION. THERAPY RECOMMENDED A WALKER. TOLD HIM HE COULD FIND ONE AT A [place] STORE FOR APPROX.$10. HE SAID HE WILL SEE IF HIS CAN GET ONE FOR HIM. HE SAID HE FEELS LIKE HE MAY BE GETTING DEPRESSED AGAIN. HE WENT THROUGH DEPRESSION SEVERAL YEARS AGO. HE WOULD LIKE TO GET ON SOME MEDICATION AND MAYBE SPEAK WITH A COUNSELOR BEFORE IT GETS TOO BAD. [facility] [employer] PHONE NUMBER ON DISCHARGE INSTRUCTIONS. HE SAID HE HAS USED THEM BEFORE. INFORMED FLORIDA ROSA. SHE WILL SPEAK WITH . SHE WILL ALSO FIND OUT FROM ABOUT DRESSING CHANGES. POSSIBLY PT. GOING TO DR. OTTO OFFICE TO GET CHANGED.
[2019-02-24 16:24] VITALS: BP 128/83
[2019-02-24 17:07] VITALS: BP 128/83
--- NOTE | 2019-02-24 18:04 | NUR ---
ASSUMED CARE OF PATIENT AT APPROX 0730. ALERT AND ORIENTED X4. ASSESSMENT COMPLETED AND CHARTED. VSS ON ROOM AIR. NO COMPLAINTS OF PAIN, NAUSEA, OR SOA. ANTIBIOTICS INFUSED ORDERED, SWITCHED TO ORAL THIS AFTERNOON. PATIENT WORKED WITH THERAPIES TODAY, PROGRESSING TOWARD GOALS. UP WITH STAND BY ASSIST AND WALKER. PATIENT NONCOMPLIANT WITH WEIGHT BEARING LIMITATION ON LEFT FOOT. PATIENT EDUCATED ON THE IMPORTANCE OF MAINTIANING NON WEIGHT BEARING STATUS TO PREVENT POST SURGICAL COMPLICATIONS. FALL PRECAUTIONS IN PLACE. CALL LIGHT WITHIN REACH. HOURLY ROUNDS COMPLETED. NURSING WILL CONTINUE TO MONITOR.
[2019-02-24 20:16] VITALS: BP 135/86
[2019-02-25 03:58] LABS: HEMATOCRIT 34.3 % (42.0-52.0); HEMOGLOBIN 11.5 gm/dL (14.0-18.0); MCH 29.9 pg (26.0-34.0); MCHC 33.4 g/dL (28.0-37.0); MCV 89.5 fL (80.0-100.0); MPV 9.1 fl. (7.2-11.1); RBC 3.84 mil/uL (4.50-6.00); RDW-CV 13.1 % (10.5-14.5); WBC 6.1 thou/uL (4.0-11.0)
[2019-02-25 04:34] LABS: ALBUMIN 2.3 g/dL (3.4-5.0); CALCIUM 8.8 mg/dL (8.5-10.1); MAGNESIUM 2.1 mg/dL (1.8-2.4); POTASSIUM 4.5 mmol/L (3.5-5.1); TOTAL BILIRUBIN 0.2 mg/dL (<0.1-1.0); TOTAL PROTEIN 6.7 g/dL (6.4-8.2)
--- NOTE | 2019-02-25 06:34 | NUR ---
PT WAS STABLE. COMPLAINED OF PAIN IN THE EVENING AND PAIN MEDICATION GIVEN; NO MORE COMPLAIN OF PAIN. NO BLEEDING NOTED AT THE LEFTH FOOT AND DRESSING WAS DRY AND INTACT.
[2019-02-25] MEDS ORDERED: ASPIRIN325 PO (06:47)
[2019-02-25] MEDS ORDERED: GLUCOPHAGE500 MG PO (06:47)
[2019-02-25] MEDS ORDERED: IBUPROFEN 600600 M1 PO (06:47)
[2019-02-25] MEDS ORDERED: HYDROCODONE-AP1 EAC6 PO (06:47)
[2019-02-25] MEDS ORDERED: ZYVOX600 MG PO (06:47)
[2019-02-25] MEDS ORDERED: HUMULIN N100 UNIT/1 SUBQ (06:47)
[2019-02-25] MEDS ORDERED: CELEXA10 MG PO (07:13)
[2019-02-25 08:45] VITALS: BP 127/88
[2019-02-25 12:09] VITALS: BP 128/83
--- NOTE | 2019-02-25 13:53 | NUR ---
Pt given walker, which had been donated to PT. No other needs identified.
[2019-02-25 17:21] VITALS: BP 115/84
--- NOTE | 2019-02-25 18:16 | NUR ---
PATIENT DISCHARGED FROM UNIT AT 1800. ALERT AND ORIENTED X 4. UP WITH STAND BY ASSISTANCE. NON-WEIGHT BEARING ON LEFT FOOT. LEFT FOOT DRESSING CLEAN/DRY/INTACT. IV DISCONTINUED. PAIN BEING MANAGED WITH PO MEDICATION. DENIES. NAUSEA. SPOKE WITH DR. GONZALEZ AND HE WANTS TO SEE PATIENT IN OFFICE ON TUESDAY 02/27 OR WEDNESDAY 02/28 FOR DRESSING CHANGE. INFORMED PATIENT OF THIS. DISCHARGE INSTRUCTIONS, MEDICATION INFORMATION AND SCRIPTS GIVEN TO PATIENT. WALKER GIVEN TO PATIENT, WELL. PATIENT LEFT WITH ALL BELONGINGS VIA CAB.
[2019-02-25 18:18] VITALS: BP 128/83
== END 2019-02-25 18:00 | disposition home health service (06) | DRG 854 ==
LOC: M.ERS 22:20 → M.TBA-ER 23:36 → M.2W 23:36 → M.ORTHSURG 02-20 22:40
PROVIDERS: Emergency Medicine Emergency Medical Services; Internal Medicine; ADMIT Family Medicine
DX: A41.9 Sepsis, unspecified organism (principal); M86.8X7 Other osteomyelitis, ankle and foot; L02.612 Cutaneous abscess of left foot; E11.69 Type 2 diabetes mellitus with other specified complication; E11.621 Type 2 diabetes mellitus with foot ulcer; L97.529 Non-pressure chronic ulcer of other part of left foot with unspecified severity; L03.032 Cellulitis of left toe; I10 Essential (primary) hypertension; F32.9 Major depressive disorder, single episode, unspecified; E11.42 Type 2 diabetes mellitus with diabetic polyneuropathy; E11.22 Type 2 diabetes mellitus with diabetic chronic kidney disease; N18.1 Chronic kidney disease, stage 1; B95.2 Enterococcus as the cause of diseases classified elsewhere; I12.9 Hypertensive chronic kidney disease with stage 1 through stage 4 chronic kidney disease, or unspecified chronic kidney disease; B95.61 Methicillin susceptible Staphylococcus aureus infection as the cause of diseases classified elsewhere; Z90.49 Acquired absence of other specified parts of digestive tract; Z79.4 Long term (current) use of insulin; Z79.899 Other long term (current) drug therapy; Z83.3 Family history of diabetes mellitus; Z28.21 Immunization not carried out because of patient refusal

== ENCOUNTER → 2022-01-19 | Emergency (ER) | payer OTHER ==
[~2022-01-19] VITALS: Ht 188 cm; Wt 86.2 kg
[~2022-01-19] MED LIST changes: +ASPIRIN325 PO; +CELEXA10 MG PO; +GLUCOPHAGE500 MG PO; +HUMULIN N100 UNIT/1 SUBQ; +HYDROCODONE-AP1 EAC6 PO; +IBUPROFEN 600600 M1 PO; +ZYVOX600 MG PO
--- NOTE | ~2022-01-19 | EKG ---
[place] [address] ELECTROCARDIOGRAM REPORT Name: MAHENDRA AMADOR Room: [facility]#: [id number] Admission: Attend Phys: Discharge: Date of : 69 Date of Service: 01/19/222131 Report #: [id number] THIS REPORT FOR: //name// [facility] ED Test Date: 2022-01-19 Test Time: 21:32:57 Pat Name: MAHENDRA AMADOR Department: Room: Gender: Sheet Metal Helper: : 1965 Requested By: Víctor Girard Order Number: [id number] MD: Measurements Intervals [place] Rate: 96 P: 44 VT: 194 QRS: -25 QRSD: 91 T: 34 QT: 355 QTc: 449 Interpretive Statements Sinus rhythm Borderline left axis deviation Compared to ECG 02/17/2019 00:00:37 Sinus tachycardia no longer present ST (T wave) deviation no longer present [email or web address] By: 31 31 Epiphany EpiphanyMD /EPI
[2022-01-19 20:55] VITALS: BP 129/90
[2022-01-19 21:28] LABS: ABSOLUTE BASOPHILS 0.1 thou/uL (0.0-0.2); ABSOLUTE EOSINOPHILS 0.1 thou/uL (0.0-0.7); BASOPHILS 1.2 %; EOSINOPHILS 2.4 %; RDW-CV 13.6 % (10.5-14.5)
[2022-01-19 21:30] LABS: ABSOLUTE LYMPHOCYTES 1.1 thou/uL (0.8-5.3); ABSOLUTE MONOCYTES 0.3 thou/uL (0.0-1.2); ABSOLUTE NEUTROPHILS 3.1 thou/uL (1.6-8.1); HEMATOCRIT 37.7 % (42.0-52.0); HEMOGLOBIN 12.3 gm/dL (14.0-18.0); LYMPHOCYTES 23.9 %; MCH 29.8 pg (26.0-34.0); MCHC 32.7 g/dL (28.0-37.0); MCV 91.1 fL (80.0-100.0); MONOCYTES 7.3 %; MPV 10.5 fl. (7.2-11.1); NUCLEATED RBCS 0 /100WBC; PLATELET COUNT* 205 thou/uL (150-400); POLYS 65.2 %; RBC 4.13 mil/uL (4.50-6.00); WBC 4.7 thou/uL (4.0-11.0)
[2022-01-19 21:41] LABS: PCO2 VENOUS 53.2 mmHg (41.0-51.0); PO2 VENOUS 45.9 mmHg (35.0-45.0)
[2022-01-19 21:48] LABS: ANION GAP 8 mmol/L (7-16); BUN 26 mg/dL (7-18); CALCIUM 9.3 mg/dL (8.5-10.1); CHLORIDE 94 mmol/L (98-107); CO2 30 mmol/L (21-32); CREATININE 1.1 mg/dL (0.6-1.3); POTASSIUM 4.5 mmol/L (3.5-5.1); SODIUM 132 mmol/L (136-145)
[2022-01-19 21:49] LABS: ALBUMIN 3.6 g/dL (3.4-5.0); ALKALINE PHOSPHATASE 97 U/L (46-116); LIPASE 114 U/L (73-393); MAGNESIUM 2.3 mg/dL (1.8-2.4); SGOT 11 U/L (15-37); SGPT 22 U/L (30-65); TOTAL BILIRUBIN 0.5 mg/dL (<0.1-1.0); TOTAL PROTEIN 7.2 g/dL (6.4-8.2)
[2022-01-19 21:50] LABS: GLUCOSE 666 mg/dL (70-99)
== END ==
LOC: M.ERS 20:53
PROVIDERS: Physician Assistant Medical
DX: R73.9 Hyperglycemia, unspecified (principal); I10 Essential (primary) hypertension; F32.9 Major depressive disorder, single episode, unspecified; I12.9 Hypertensive chronic kidney disease with stage 1 through stage 4 chronic kidney disease, or unspecified chronic kidney disease; N18.1 Chronic kidney disease, stage 1; Z90.49 Acquired absence of other specified parts of digestive tract; Z79.82 Long term (current) use of aspirin; Z79.899 Other long term (current) drug therapy; Z79.4 Long term (current) use of insulin